=== PATIENT | male | born 1995 | race Caucasian/White ===

== ENCOUNTER 2016-10-25 05:50 | Emergency (ER) | payer BC ==
[2016-10-25] MEDS ORDERED: LORazepam 2 MG/ML MDV IVPUSH ONE ×2 (05:58→06:56)
[2016-10-25] MEDS ORDERED: Dextrose 5%-0.9% NaCl 1,000 ML IV SCH (06:00)
[2016-10-25] MEDS ORDERED: Metoclopramide 10 MG/2 ML SDV IVPUSH ONE (06:02)
--- NOTE | 2016-10-25 06:03 | EDM.PDOC ---
[id number] Information: Reports: Patient, EMS History Limitations: Reports: Altered Mental Status, Intoxication - History of Present Illness Onset: Today Duration: Hour(s): Location: Reports: Generalized Quality: Reports: Other (Hallucinations) Severity: Moderate Improves with: Reports: None Worsens with: Reports: None Context: Reports: Other (Apparently was contemplating suicide by way of overdose.) Associated Symptoms: Reports: Confusion, Nausea/Vomiting (Nausea without vomiting. Paramedics noted him to be dry heaving a good deal.). 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 The story presented by paramedics is that the patient was feeling suicidal and decided to end his life by taking an overdose of mushrooms. Apparently he was identified to be markedly hallucinating when they arrived. He denies drinking any alcohol. Has a history of intravenous drug abuse in the past. Does use marijuana. Has been in treatment and rehabilitation on several occasions in the past. Apparently he self-inflicted a head injury by banging his head against the wall but he was not involved in any fighting or violent disputes. He has been alert since the paramedics picked him up. It is unclear when he last ingested the mushrooms. (Warren Escobar) - Related Data Allergies Allergy/AdvReac Type Severity Reaction Status Date / Time No Known Allergies Allergy Verified 10/25/16 06:00 Home Meds: Home Meds Escitalopram [Lexapro] 20 mg PO DAILY 10/25/16 [History] hydrOXYzine Pamoate [Hydroxyzine Pamoate] 50 mg PO DAILY 10/25/16 [History] Social & Family History - Recreational Drug Use Recreational Drug Type: Reports: Amphetamines (Speed), Marijuana/Hashish, Psilocybin (Mushrooms) Recreational Drug Use Frequency: Binges Recreational Drug Route: Reports: Other (See Below) (Ingested.) <Warren Escobar - Last Filed: 10/30/16 07:57> ED ROS GENERAL - Review of Systems Review Of Systems: See Below <Iron Woody - Last Filed: 10/25/16 14:33> - Review of Systems Constitutional: Reports: Decreased Appetite, Weight Loss. Denies: Fever, Chills , Malaise, Weakness, Fatigue, Diaphoresis HEENT: Reports: Other (I claims to have visual hallucinations at times) Respiratory: Reports: No Symptoms Cardiovascular: Reports: No Symptoms Endocrine: Reports: No Symptoms GI/Abdominal: Reports: Nausea (With no vomiting) : Reports: No Symptoms Musculoskeletal: Reports: No Symptoms Skin: Reports: No Symptoms Neurological: Reports: Confusion. Denies: Trouble Speaking, Difficulty Walking , Weakness Psychiatric: Reports: Hallucinations Immunologic: Reports: No Symptoms <Warren Escobar - Last Filed: 10/30/16 07:57> - Physical Exam Exam: See Below Exam Limited By: Altered Mental Status General Appearance: Anxious, Mild Distress, Other Eye Exam: Bilateral Eye: Conjunctival Injection (Marked bilaterally.) Throat/Mouth: Other (Tongue is very dry and coated.) Head Exam: Scalp Swelling (Mild midline forehead at the hair line) Neck: Normal Inspection, Supple, Non-Tender, Full Range of Motion Respiratory/Chest: No Respiratory Distress, Lungs Clear, Normal Breath Sounds, No Accessory Muscle Use. No: Wheezing Cardiovascular: Normal Peripheral Pulses, Regular Rate, Rhythm, No Edema, No Gallop, No Murmur GI/Abdominal: Normal Bowel Sounds, Soft, Non-Tender, No Organomegaly, Other (No surgical scars noted) Neuro Exam (Abbreviated): CN II-XII Intact, No Motor/Sensory Deficits. No: Oriented, Normal Cognition Back Exam: Normal Inspection Extremities: Normal Inspection, Normal Range of Motion, Non-Tender, No Pedal Edema Psychiatric: Anxious (Mild.) Skin Exam: Warm, Dry, Intact, Normal Color, No Rash <Warren Escobar - Last Filed: 10/30/16 07:57> EKG INTERPRETATION <Iron Woody - Last Filed: 10/25/16 14:33> EKG Date: 10/25/16 Time: 06:15 Rhythm: NSR Rate (Beats/Min): 73 [place]: Normal P-Wave: Present QRS: Other (Early R-wave transition. Left ventricular hypertrophy pattern normal for his age.) ST-T: Normal <Warren Escobar - Last Filed: 10/30/16 07:57> EKG Interpretation Comments: Normal ECG for his age. (Warren Escobar) Course <Iron Woody - Last Filed: 10/25/16 14:33> <Warren Escobar - Last Filed: 10/30/16 07:57> - Vital Signs Last Recorded V/S: Last Vital Signs Temp 37.5 C 10/25/16 05:56 Pulse 50 L 10/25/16 15:05 Resp 18 10/25/16 15:05 BP 89/41 L 10/25/16 15:05 Pulse Ox 98 10/25/16 15:05 (Iron Woody) - Orders/Labs/Meds Orders: (Iron Woody) Labs: Laboratory Tests 10/25/16 10/25/16 10/25/16 Range/Units 06:20 06:20 07:15 WBC 7.95 (4.23-9.07) K/mm3 RBC 5.20 (4.63-6.08) M/mm3 Hgb 16.1 (13.7-17.5) gm/L Hct 44.3 (40.1-51.0) % MCV 85.2 (79.0-92.2) fl MCH 31.0 (25.7-32.2) pg MCHC 36.3 H (32.2-35.5) g/dl RDW Std Deviation 38.8 (35.1-43.9) fL Plt Count 194 (163-337) K/mm3 MPV 11.0 (9.4-12.3) fl Neutrophils % (Manual) 52 (40-60) % Band Neutrophils % 0 (0-10) % Lymphocytes % (Manual) 42 H (20-40) % Atypical Lymphs % 0 % Monocytes % (Manual) 5 (2-10) % Eosinophils % (Manual) 1 (0.8-7.0) % Basophils % (Manual) 0 L (0.2-1.2) Platelet Estimate Adequate RBC Morph Comment Normal Sodium 138 (136-145) mEq/L Potassium 3.8 (3.5-5.1) mEq/L Chloride 102 (98-107) mEq/L Carbon Dioxide 26 (21-32) mEq/L Anion Gap 13.8 (5-15) BUN 16 (7-18) mg/dL Creatinine 1.0 (0.7-1.3) mg/dL Est Cr Clr Drug Dosing 125.50 mL/min Estimated GFR (MDRD) > 60 (>60) mL/min BUN/Creatinine Ratio 16.0 (14-18) Glucose 95 (74-106) mg/dL Calcium 9.7 (8.5-10.1) mg/dL Total Bilirubin 0.8 (0.2-1.0) mg/dL AST 19 (15-37) U/L ALT 18 (16-63) U/L Alkaline Phosphatase 92 (46-116) U/L Total Protein 8.3 H (6.4-8.2) g/dl Albumin 5.1 H (3.4-5.0) g/dl Globulin 3.2 gm/dL Albumin/Globulin Ratio 1.6 (1-2) Amylase 50 (25-115) U/L Urine Opiates Screen Negative (NEGATIVE) Ur Buprenorphine Scrn Negative (NEGATIVE) Ur Oxycodone Screen Negative (NEGATIVE) Urine Methadone Screen Negative (NEGATIVE) Ur Propoxyphene Screen Negative (NEGATIVE) Ur Barbiturates Screen Negative (NEGATIVE) Ur Tricyclics Screen Negative (NEGATIVE) Ur Phencyclidine Scrn Negative (NEGATIVE) Ur Amphetamine Screen Presumptive positive H (NEGATIVE) U Methamphetamines Scrn Negative (NEGATIVE) U Benzodiazepines Scrn Negative (NEGATIVE) U Cocaine Metab Screen Negative (NEGATIVE) U Marijuana (THC) Screen Negative (NEGATIVE) Ethyl Alcohol 0.00 (0.00) gm% 10/25/16 Range/Units 11:25 WBC (4.23-9.07) K/mm3 RBC (4.63-6.08) M/mm3 Hgb (13.7-17.5) gm/L Hct (40.1-51.0) % MCV (79.0-92.2) fl MCH (25.7-32.2) pg MCHC (32.2-35.5) g/dl RDW Std Deviation (35.1-43.9) fL Plt Count (163-337) K/mm3 MPV (9.4-12.3) fl Neutrophils % (Manual) (40-60) % Band Neutrophils % (0-10) % Lymphocytes % (Manual) (20-40) % Atypical Lymphs % % Monocytes % (Manual) (2-10) % Eosinophils % (Manual) (0.8-7.0) % Basophils % (Manual) (0.2-1.2) Platelet Estimate RBC Morph Comment Sodium 141 (136-145) mEq/L Potassium 3.5 (3.5-5.1) mEq/L Chloride 106 (98-107) mEq/L Carbon Dioxide 27 (21-32) mEq/L Anion Gap 11.5 (5-15) BUN 14 (7-18) mg/dL Creatinine 0.9 (0.7-1.3) mg/dL Est Cr Clr Drug Dosing 139.44 mL/min Estimated GFR (MDRD) > 60 (>60) mL/min BUN/Creatinine Ratio 15.6 (14-18) Glucose 67 L (74-106) mg/dL Calcium 9.3 (8.5-10.1) mg/dL Total Bilirubin 0.9 (0.2-1.0) mg/dL AST 21 (15-37) U/L ALT 22 (16-63) U/L Alkaline Phosphatase 82 (46-116) U/L Total Protein 7.6 (6.4-8.2) g/dl Albumin 4.6 (3.4-5.0) g/dl Globulin 3.0 gm/dL Albumin/Globulin Ratio 1.5 (1-2) Amylase (25-115) U/L Urine Opiates Screen (NEGATIVE) Ur Buprenorphine Scrn (NEGATIVE) Ur Oxycodone Screen (NEGATIVE) Urine Methadone Screen (NEGATIVE) Ur Propoxyphene Screen (NEGATIVE) Ur Barbiturates Screen (NEGATIVE) Ur Tricyclics Screen (NEGATIVE) Ur Phencyclidine Scrn (NEGATIVE) Ur Amphetamine Screen (NEGATIVE) U Methamphetamines Scrn (NEGATIVE) U Benzodiazepines Scrn (NEGATIVE) U Cocaine Metab Screen (NEGATIVE) U Marijuana (THC) Screen (NEGATIVE) Ethyl Alcohol (0.00) gm% (Iron Woody) Meds: Medications Discontinued Medications Generic Name Dose Route Start Last Admin Trade Name Freq PRN Reason Stop Dose Admin Haloperidol Lactate 5 mg 10/25/16 06:41 10/25/16 06:49 Haldol IVPUSH 10/25/16 06:42 5 mg ONETIME ONE Administration Haloperidol Lactate Confirm 10/25/16 06:45 10/25/16 07:14 Haldol Administered 10/25/16 06:46 Not Given Dose 5 mg .ROUTE .STK-MED ONE Dextrose/Sodium Chloride 1,000 mls @ 500 mls/hr 10/25/16 06:00 10/25/16 06:30 Dextrose 5%-Normal Saline IV 500 mls/hr ASDIRECTED WESLY Administration Lorazepam 1 mg 10/25/16 05:58 10/25/16 06:26 Ativan IVPUSH 10/25/16 05:59 1 mg ONETIME ONE Administration Lorazepam 1 mg 10/25/16 06:56 10/25/16 06:59 Ativan IVPUSH 10/25/16 06:57 1 mg ONETIME ONE Administration Lorazepam Confirm 10/25/16 06:59 10/25/16 07:13 Ativan Administered 10/25/16 07:00 Not Given Dose 2 mg .ROUTE .STK-MED ONE Metoclopramide HCl 7.5 mg 10/25/16 06:02 10/25/16 06:31 Reglan IVPUSH 10/25/16 06:03 7.5 mg ONETIME ONE Administration (Iron Woody) - Radiology Interpretation Free Text/Narrative:: 21-year-old brought to the ED from [facility] per ambulance after he summoned them. There is suggestion is that he took an overdose of magic mushrooms hallucinogenic's in an effort to end his life. This seems rather bizarre as the psilocybin's in the mushrooms will cause him to hallucinate but not to ever in his life. At the time of his arrival in the ED he appears to be moderately intoxicated and paramedics identify that his thought processes are very tangential and all over the place with some flight of ideas. Seems to have visual hallucinations at times. Unable to establish an IV. He is receiving no medications. Apparently has a history of drug abuse and has been in and out of treatment centers in the past. At present he does not appear to have any alcohol on his breath. He states he does not take any medications. Vital signs are stable at this time. BP is 95/68 O2 sats 94% which I don't believe is accurate as not holding still very well. Plan IV normal saline at 500 mils per hour. Routine labs and ECG to be done. Given Ativan 1 mg IV. (Warren Escobar) - Re-Assessments/Exams Free Text/Narrative Re-Assessment/Exam: 10/25/16 06:41 Patient is becoming more combat both and agitated. Police were summoned to provide assistance in restraining him. Plan will be to give him Haldol 5 mg intravenously to provide sedation. 10/25/16 06:56 in order to restrain him police handcuffed him to the rails of the bed. Patient continues to make struggling efforts against the bed rails. Haldol has slowed him down a bit. Vitals are stable and I will therefore give him Ativan 1 mg IV as well to provide sedation until the effects of the psilocybin wear off. Disposition will be left up to Dr. Woody at his as it is now change of shift and we discussed the case. Police indicate that he does not have any outstanding warrants for his arrest. He therefore will have to remain either in the ER or be admitted to the ICU if his hallucinogenic state persist. We have no way of knowing when he last ingested mushrooms or if this is all the wrist to his toxidrome. 10/25/16 06:59 labs are all normal urinalysis has not yet been obtained to view drug screen. (Warren Escobar) Free Text/Narrative Re-Assessment/Exam: 10/25/16 07:[address] Escobar, and I examined the patient. Currently he is sleeping soundly. Urine sample was collected by quick catheter, and urine drug screen is pending. The plan is to keep the patient in the ED until he is lucid, at which time he can be discharged home. There is no "reversal agent" for psilocybin - only time. 10/25/16 11:12 Psilocybin-containing mushrooms are not usually harmful, however, it is possible that the patient consumed toxic mushrooms in addition, or non- psilocybin-containing mushrooms laced with LSD or other compounds. The patient' s urine drug screen is positive only for amphetamine; it does not test for psilocybin or LSD. I have ordered a repeat CMP to make sure that the patient's LFTs have not gone up. 10/25/16 12:12 The patient's repeat CMP, including his LFTs, is normal, With the exception of a blood glucose of 67. I would like to start waking the patient and feed him. 10/25/16 14:33 The patient is now awake, ambulatory, and fit for discharge. (Iron Woody) Departure - Departure Time of Disposition: 14:33 Condition: Good <Iron Woody - Last Filed: 10/25/16 14:33> <Warren Escobar - Last Filed: 10/30/16 07:57> - Departure Disposition: Home, Self-Care 01 Clinical Impression: Psilocybin abuse, Polysubstance abuse - Discharge Information Instructions: Suicidal Feelings: How to Help Yourself, Finding Treatment for Addiction Referrals: Laxmi Wong MD [Primary Care Provider] - Additional Instructions: You were seen in the emergency room after eating an excessive amount of hallucinogenic mushrooms. Workup in the ER included a urine drug screen, which returned positive for amphetamines. We STRONGLY recommend you seek professional drug treatment at [facility] [address] [place] If any other problems, please do not hesitate to return to the ER.
[2016-10-25] MEDS ORDERED: Haloperidol Lactate 5 MG/ML SDV IVPUSH ONE (06:41)
[2016-10-25] MEDS ORDERED: Haloperidol Lactate 5 MG/ML SDV ONE (06:45)
[2016-10-25] MEDS ORDERED: LORazepam 2 MG/ML MDV ONE (06:59)
[2016-10-25 15:09] VITALS: BP 89/41
== END 2016-10-25 15:05 | disposition home or self-care (01) ==
LOC: JD.ED 05:50
DX: F16.10 Hallucinogen abuse, uncomplicated (principal); F19.10 Other psychoactive substance abuse, uncomplicated; Z79.899 Other long term (current) drug therapy
CPT/HCPCS: 36415; 51702; 80053; 80306; 82150; 85025; 93005; 96361; 96374; 96375; 96376; 99285; G0480; J1630; J2060; J2765; J7042; P9612; 99284